=== PATIENT | female | born 1970 | race Caucasian/White ===

== ENCOUNTER → 2016-08-12 | Outpatient (CLI) | payer BC ==
[~2016-08-12] MED LIST: BETAPACE160 MG PO; FERROUS GL325 MG/TAB PO; IRON90 MG PO; LEXAPRO20 MG PO; MOTRIN 800800 MG/TAB PO; PERCOCET 325 MG1 TA2 PO; XARELTO20 MG PO; ZYRTEC 10MG10 MG PO
== END ==
LOC: MC.RAD 07-22 13:20
DX: Z12.31 Encounter for screening mammogram for malignant neoplasm of breast (principal)

== ENCOUNTER → 2017-12-20 | Outpatient (CLI) | payer BC | LOC: MC.RAD 13:17 | DX: Z12.31 Encounter for screening mammogram for malignant neoplasm of breast (principal) ==

== ENCOUNTER 2018-02-26 10:16 | Emergency (ER) | payer BC ==
[~2018-02-26] VITALS: Ht 170.2 cm; Wt 113.2 kg
[2018-02-26] MEDS ORDERED: LEVOXYL0.05 MG PO (10:39)
[2018-02-26 11:17] LABS: BASO % 0.5 % (0.0-2.0); EOS # 0.1 (0.0-0.7); EOS % 0.7 % (0-4.0); GRAN # 6.5 (1.4-6.5); GRAN % 80.1 % (42.2-75.2); HEMATOCRIT 41.3 % (37.0-47.0); HEMOGLOBIN 13.9 g/dl (12.5-16.0); LYMPH # 0.8 (1.2-3.4); LYMPH % 9.3 % (20.0-51.0); MEAN CELL VOLUME 87 fl (80.0-100.0); MEAN CORPUSCULAR HEMOGLOBIN 29 pg (27.0-31.0); MEAN CORPUSCULAR HGB CONC 34 g/dl (33.0-37.0); MEAN PLATELET VOLUME 9.2 fl (7.4-10.4); MONO # 0.7 (0.1-0.6); MONO % 8.9 % (1.7-9.3); PLATELET COUNT 204 K/mm3 (130-400); RED BLOOD COUNT 4.76 M/mm3 (4.10-5.30); REDCELL DISTRIBUTION WIDTH-CV 14.2 % (11.5-14.5)
[2018-02-26 11:42] LABS: BILIRUBIN,TOTAL 0.5 mg/dL (0.0-1.0); CALCIUM 9.6 mg/dL (8.4-10.2); CREATININE, serum 0.63 mg/dL (0.52-1.25); POTASSIUM 3.8 mmol/L (3.4-5.0); TOTAL PROTEIN 7.5 gm/dL (6.4-8.2)
[2018-02-26 13:16] VITALS: BP 103/45; PULSE 95; TEMP 101.2
[2018-02-26] MEDS ORDERED: LEVAQUIN 5500 MG/TA1 PO (13:46)
== END 2018-02-26 13:55 | disposition home or self-care (01) ==
LOC: COL.ER 10:16
PROVIDERS: Nurse Practitioner
DX: J18.1 Lobar pneumonia, unspecified organism (principal); F41.9 Anxiety disorder, unspecified; I48.91 Unspecified atrial fibrillation; E03.9 Hypothyroidism, unspecified; Z90.710 Acquired absence of both cervix and uterus; Z90.49 Acquired absence of other specified parts of digestive tract
CPT/HCPCS: J2405; J7030; Q9967

== ENCOUNTER → 2019-03-13 | Outpatient (CLI) | payer BC ==
[~2019-03-13] MED LIST changes: +LEVAQUIN 5500 MG/TA1 PO; +LEVOXYL0.05 MG PO
== END ==
LOC: MC.RAD 12:55
DX: Z12.31 Encounter for screening mammogram for malignant neoplasm of breast (principal)

== ENCOUNTER 2019-12-27 08:19 | Emergency (ER) | payer SELFPAY ==
[~2019-12-27] VITALS: Ht 172.7 cm; Wt 110.9 kg
[2019-12-27 08:21] VITALS: TEMP 97.5
[2019-12-27] MEDS ORDERED: SYNTHROID0.05 MG/TA PO (08:24)
[2019-12-27] MEDS ORDERED: ZYRTEC 10MG10 MG PO (08:24)
[2019-12-27] MEDS ORDERED: NORCO 325 MG-51 TAB PO (10:06)
[2019-12-27] MEDS ORDERED: AMOXICILLIN 8751 TAB PO (10:12)
[2019-12-27 10:26] VITALS: BP 127/65; PULSE 65
== END 2019-12-27 10:28 | disposition home or self-care (01) ==
LOC: COL.ER 08:19
DX: S02.2XXA Fracture of nasal bones, initial encounter for closed fracture (principal); E03.9 Hypothyroidism, unspecified; Z86.711 Personal history of pulmonary embolism; Z88.8 Allergy status to other drugs, medicaments and biological substances; Z79.890 Hormone replacement therapy; V43.52XA Car driver injured in collision with other type car in traffic accident, initial encounter
CPT/HCPCS: J2405; J3010